=== PATIENT | male | born 1985 | race Caucasian/White ===

== ENCOUNTER 2023-06-12 20:29 | Outpatient (CLI) | payer OTHER | END 2023-06-12 20:30 | disposition home or self-care (01) | LOC: SC 20:29 | PROVIDERS: ATTEND Nurse Practitioner Family | DX: G47.61 Periodic limb movement disorder (principal) | CPT/HCPCS: 95810 ==

== ENCOUNTER 2023-06-22 09:08 | Outpatient (CLI) | payer OTHER ==
--- NOTE | 2023-06-22 09:51 | Sleep Patient Instructions ---
Sleep Center Visit Summary - Patient Visit Information Reason for Visit: Sleep study followup - Patient Instructions Additional Instructions: Your sleep study today was negative for significant sleep disordered breathing. However, you did have moderate periodic leg movements of sleep. You may follow up with your primary provider for further evaluation of the PLMs. Follow-up in sleep care as needed. - Clinic Information Contact: [facility] [address] [place] [email or web address] T: [phone]
--- NOTE | 2023-06-22 09:52 | SLEEP CARE CONSULTATION ---
Information from patient questionnaire entered by Sandy Potter. I have reviewed and concur with the information entered by Sandy Potter. This document represents the service I personally performed and the decisions made by , Dominique Juárez ARNP. History of Present Illness Service Date and Time: 06/22/2023 0908 Initial [place] Sleepiness Scale score: 11 (04/12/2023) Current [place] Sleepiness Scale score: 14 (06/22/23) Additional HPI information: BARBARA ZARCO returns for follow up and results of the recently performed polysomnography. The patient was informed of the following findings: No significant sleep disordered breathing with an average AHI of 2.0 and wei oxygen saturation of 91%. I explained the pathophysiology behind obstructive sleep apnea. Patient does not have sleep apnea and was advised how weight gain could increase the risk of developing sleep apnea in the future. I strongly encouraged the patient to lose weight. Patient does not drink alcohol. Patient was cautioned about risks of drowsy driving until sleepiness symptoms resolve. Patient denies drowsy driving. Sleep Study - Results Type of Sleep Study: Polysomnography (COMPLETED 06/12/23) Prior sleep studies: Yes Year and Where: 2019? Polysomnography/Home Sleep Study results: IMPRESSION: The quality of the study is good. The patient had normal sleep efficiency. The sleep architecture was relatively normal as well considering the first night effect. Respiratory monitoring showed no significant sleep disordered breathing (AHI = 2.0) or hypoxia (wei oxygen saturation of 91%). The patient slept adequately in supine position (supine AHI = 3.5; non-supine = 0.00). No audible snore. There was moderate periodic leg movement of sleep not associated with sleep fragmentation. Cardiac rhythm was normal sinus rhythm without significant arrhythmia. No abnormal behavior (parasomnia) observed during the night. Allergies and Home Medications Known drug allergies: No Drug allergies reviewed: Yes Home medication list reviewed: Yes (no changes) Allergy and home medication list: Allergies No Known Drug Allergies Allergy (Verified 06/21/23 15:01) Review of Systems Review of systems same as previous: Yes (NO CHANGE) Physical Exam Vital signs obtained and entered by: SANDY Patel MA Blood Pressure: 138/84 (LEFT ARM) Cuff size: regular Heart Rate: 85 O2 Saturation: 9 Height: 6 ft Weight: 207 lb 6.4 oz Body Mass Index: 28.1 BMI Classification: Overweight Impression and Plan 1. Periodic limb movement, moderate, that did not fragment patients sleep. Periodic limb movement of sleep (PLMS) is characterized by episodes of repetitive limb movements that occur during sleep and usually involve the lower limbs. The etiology is unknown but can be associated with restless leg syndrome (RLS), neuropathy, spinal cord diseases, kidney disease, rheumatological disorders, narcolepsy, obstructive sleep apnea, and REM sleep behavior disorder. Other factors that can increase PLMS and/or RLS are heredity and iron deficiency as reflected by a low serum ferritin level below 50 to 75mcg / L. Several medications can precipitate or aggravate PLMS such as selective serotonin re- uptake inhibitor antidepressants, tricyclic antidepressants, lithium, and dopamine receptor antagonists with the exception of bupropion. Caffeine can also aggravate PLMS and should be avoided. Sleep hygiene methods can also improve sleep as well as lifestyle changes such as regular exercise. Patient was advised that no treatment is needed at this time. If symptoms increase, then further evaluation is indicated. 2. Overweight, unspecified. Currently patients BMI is 28.1. Obesity increases the risk of apnea, CPAP pressure requirements and overall health risks especially cardiovascular and diabetes. Thus patient is advised to lose weight. * Attempt to lose weight * The patient is cautioned about driving until sleepiness is completely resolved. * Return as needed for follow up. Counseling Topics: Weight loss health impact Follow up with Sleep Care in: as needed Follow up with: PCP Visit Type: In Office Time Spent with Patient (minutes): 12 Provider Statement: I spent 100% of the Face to Face Visit with the patient with greater than 50% spent counseling the patient and coordination of care.
[2023-06-22 10:11] VITALS: BP 138/84; O2SAT 9
== END 2023-06-22 09:09 | disposition home or self-care (01) ==
LOC: SC 09:08
PROVIDERS: ATTEND Nurse Practitioner Family
DX: G47.61 Periodic limb movement disorder (principal); E66.3 Overweight; Z68.28 Body mass index [BMI] 28.0-28.9, adult
CPT/HCPCS: 99212

== ENCOUNTER 2024-02-11 19:39 | Emergency (ER) | payer OTHER ==
--- NOTE | 2024-02-11 20:14 | ED Physician Documentation ---
History of Present Illness - Stated complaint Stated Complaint: SOA/CHILLS - Chief complaint Chief Complaint: Resp - History obtained from History obtained from: Patient - History of Present Illness Timing: Prior to arrival - Additonal information Additional information: Patient is a 38-year-old male presents to the emergency department around early afternoon patient was noted to be cleaning up some wood chips he notes they were old he breathed in a lot of the fumes when he dumped them he notes he was coughing for long period after this and continues to have cough shortness of breath. He notes cough is dry he denies any nausea or vomiting. He has not been wheezing just feels tightness to his anterior chest. No history of asthma he does not smoke. Patient does have a past medical history of multiple rib fractures with pneumothorax and pleural effusion after a tree fell on him while working back in 2019. He notes no complications since then but given his chest tightness he wanted to be evaluated. Patient notes he has been having some intermittent fevers and chills but no sore throat or runny nose. Patient has not done any home COVID test at this time and no other recent sick contacts. PD PAST MEDICAL HISTORY - Past Medical History Past Medical History: No Cardiovascular: None Respiratory: None Neuro: None Endocrine/Autoimmune: None GI: None : None HEENT: None Psych: None Musculoskeletal: None Derm: None - Past Surgical History Past Surgical History: Yes Ortho: Other - Present Medications Home Medications: Ambulatory Orders Medication Instructions Recorded Confirmed Ibuprofen [Motrin] See Rx Instructions .ROUTE .COMPLEX 06/22/23 06/22/23 - Allergies Allergies/Adverse Reactions: Allergies Allergy/AdvReac Type Severity Reaction Status Date / Time No Known Drug Allergies Allergy Verified 02/11/24 20:08 - Social History Does the pt smoke?: No Smoking Status: Never smoker Does the pt drink ETOH?: No Does the pt have substance abuse?: No - Immunizations Immunizations are current?: Yes - POLST Patient has POLST: No PD ED PE NORMAL - Vitals Vital signs reviewed: Yes - General General: Alert and oriented X 3 - HEENT HEENT: Atraumatic, PERRL, EOMI - Neck Neck: Supple, no meningeal sign - Cardiac Cardiac: RRR, No murmur, No gallop, No rub, Strong equal pulses - Respiratory Respiratory: No respiratory distress, Clear bilaterally - Abdomen Abdomen: Normal bowel sounds - Male Male : Deferred - Derm Derm: Normal color, No rash - Neuro Neuro: Alert and oriented X 3 Results - Vitals Vitals: Vital Signs - 24 hr 02/11/24 02/11/24 02/11/24 19:43 21:01 22:00 Temperature 36.8 C Heart Rate 120 H 88 Respiratory 16 20 16 Rate Blood Pressure 140/82 H 138/77 H O2 Saturation 96 90 L Oxygen O2 Source Room air - Labs Labs: Laboratory Tests 02/11/24 21:12 Nasal Adenovirus (PCR) NOT DETECTED Nasal B. parapertussis DNA (PCR) NOT DETECTED Nasal Coronavir 229E PCR NOT DETECTED Nasal Coronavir HKU1 PCR NOT DETECTED Nasal Coronavir NL63 PCR NOT DETECTED Nasal Coronavir OC43 PCR NOT DETECTED Nasal Enterovir/Rhinovir PCR NOT DETECTED Nasal Influenza B PCR NOT DETECTED Nasal Influenza A PCR NOT DETECTED Nasal Parainfluen 1 PCR NOT DETECTED Nasal Parainfluen 2 PCR NOT DETECTED Nasal Parainfluen 3 PCR NOT DETECTED Nasal Parainfluen 4 PCR NOT DETECTED Nasal RSV (PCR) NOT DETECTED Nasal B.pertussis DNA PCR NOT DETECTED Nasal C.pneumoniae (PCR) NOT DETECTED Aaron Human Metapneumo PCR NOT DETECTED Nasal M.pneumoniae (PCR) NOT DETECTED Nasal SARS-CoV-2 (PCR) NOT DETECTED - Rads (name of study) Chest X-ray Relevant Findings:: EMP independent interpretation of test PD Medical Decision Making - ED course Complexity details: reviewed results ED course: Patient is a 38-year-old male presenting with shortness of breath chest tightness tachycardic to the 120s on arrival symptoms started yesterday when he was cleaning woodchips. He notes persistent cough and shortness of breath since then he has taken Tylenol yesterday for some mild chills and fevers but has not taken anything today. No history of asthma or COPD he denies any dizziness lightheadedness. Patient tachycardic to the 120s on arrival but appears afebrile normotensive saturating on room air at 98%. Chest x-ray obtained and DuoNeb given for symptoms here in the emergency department. Chest x-ray here in the emergency department shows concerning findings for atypical pneumonia versus bilateral pulmonary edema. Patient shows no signs of fluid overload he does feel significantly better after DuoNeb however he is now saturating at 90% tachycardia resolved. Discussed with patient we will give oral dose of steroids prednisone and will repeat DuoNeb treatment. Patient agreeable with this plan. Patient signed out for disposition to Dr. Blankenship. Departure - Departure Forms: PCP List
[2024-02-11] MEDS: ACETAMINOPHEN 325 MG TABLET PO STA (20:51)
[2024-02-11] MEDS: ALBUTEROL NEB 2.5 MG/3 ML INH STA (20:57)
--- NOTE | 2024-02-11 21:22 | XRAY Report ---
PROCEDURE: Chest 1V INDICATIONS: Short of breath, cough TECHNIQUE: One view of the chest was acquired. COMPARISON: None. FINDINGS: Surgical changes and devices: Left clavicle postoperative hardware is seen. Lungs and pleura: Low lung volumes can be seen, causing a crowded appearance to the lung markings. G eneralized interstitial prominence can be seen. No angelita focal infiltrate can be seen. No large pneum othorax or large pleural effusion can be seen. Mediastinum: Mediastinal contours appear normal. Heart size is normal. Bones and chest wall: No suspicious bony lesions. Overlying soft tissues appear unremarkable. IMPRESSION: Low lung volumes with generalized interstitial prominence. Please consider pulmonary edema versus aty pical infiltrate. Artifact with atelectasis is possible, yet considered to be less likely. Reviewed by: Ifeanyi Zhang MD on 02/11/2024 8:21 PM ESTER Approved by: Ifeanyi Zhang MD on 02/11/2024 8:21 PM ESTER Station ID: [id number]
[2024-02-11 22:12] LABS: B. PARAPERTUSSIS- RESP PCR PAN NOT DETECTED; B. PERTUSSIS- RESP PCR PANEL NOT DETECTED; C. PNEUMONIAE- RESP PCR PANEL NOT DETECTED; CORONAVIRUS 229E-RESP PCR NOT DETECTED; CORONAVIRUS HKU1-RESP PCR NOT DETECTED; CORONAVIRUS NL63-RESP PCR NOT DETECTED; CORONAVIRUS OC43-RESP PCR NOT DETECTED; HUMAN METAPNEUMOVIRUS NOT DETECTED; INFLUENZA A- RESP PCR PANEL NOT DETECTED; INFLUENZA B - RESP PCR PANEL NOT DETECTED; M. PNEUMONIAE- RESP PCR PANEL NOT DETECTED; PARAINFLUENZA VIRUS 1 NOT DETECTED; PARAINFLUENZA VIRUS 2 NOT DETECTED; PARAINFLUENZA VIRUS 3 NOT DETECTED; PARAINFLUENZA VIRUS 4 NOT DETECTED; RHINOVIRUS/ENTEROVIRUS NOT DETECTED; RSV- RESP PCR PANEL NOT DETECTED; SARS-CoV-2 -RESP PCR PANEL NOT DETECTED
[2024-02-11] MEDS: predniSONE 20 MG TABLET PO STA (22:37)
[2024-02-11] MEDS: IPRATROPIUM/ALBUTEROL 3 ML NEB INH STA (22:49)
--- NOTE | 2024-02-11 23:40 | ED Physician Documentation ---
ED Addendum - Addendum Addendum: 02/11/24 23:36 38-year-old Benjie Warren is left in my care at shift change with oxygen saturation of 90% after his initial treatment with a DuoNeb. He has evidence of atypical pneumonia on his chest x-ray and he has an exposure that initiated his symptoms. 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 This happened at about 2 PM yesterday. He states he was well prior to that. He has developed some fever and chills associated with this. He has been given some prednisone here on arrival as well. He feels much improved after 2 DuoNeb treatments and the prednisone. I have evaluated the patient at the bedside with a report of potential pulmonary edema by the radiologist and with the use of POCUS I interrogated the IVC and found the patient to be euvolemic without signs of fluid overload or failure. I was satisfied that this was not pulmonary edema and I am concerned about the possibility of atypical pneumonia after review of the chest x-ray. On my evaluation after 2 treatments I find crackles at both bases. Worse on the left than the right. He was administered azithromycin here in the emergency department in addition to the other medications she has received. Will place him on a course of azithromycin as well as prednisone and expect improvement. Procedures - IVC sono (time) 1054 Bedside IVC sono: IVC measures (cm) (1.51), Euvolemia
[2024-02-11] MEDS: AZITHROMYCIN 250 MG TABLET PO STA (23:50)
[2024-02-12] MEDS: ALBUTEROL NEB 2.5 MG/3 ML INH STA (00:05)
[2024-02-12 01:12] VITALS: BP 134/92; O2SAT 95
== END 2024-02-12 00:25 | disposition home or self-care (01) ==
LOC: ED 19:39
DX: J18.9 Pneumonia, unspecified organism (principal); R00.0 Tachycardia, unspecified; Z20.818 Contact with and (suspected) exposure to other bacterial communicable diseases; Z20.822 Contact with and (suspected) exposure to COVID-19; Z20.828 Contact with and (suspected) exposure to other viral communicable diseases
CPT/HCPCS: 71045; 87633; 94640; 94664; 99284; 99285; A9270; J7512